=== PATIENT | male | born 1990 | race Two or more races ===

== ENCOUNTER 2025-02-09 14:23 | Emergency (ER) | payer MEDICAID, SELFPAY ==
[2025-02-09 14:37] VITALS: BP 121/84; PULSE 84; RESP 18; TEMP 36.9; O2SAT 97
[2025-02-09 14:38] VITALS: BMI 33.4
--- NOTE | 2025-02-09 15:04 | EDNOTE_ITS ---
ED Headache RME/HPI General Chief Complaint: Headache Stated Complaint: Headache X 5 days Time Seen by Provider: 02/09/25 14:42 Arrival date/time: 02/09/25 14:23 Limitations: language barrier RME / HPI RME / HPI Narrative: 34-year-old male brought in by for evaluation of headache x 5 days. He describes it as intermittent tightness from the back of his scalp to his bilateral temporal region. He endorses increased fatigue, itching eyes, red eyes for the last x 1 week. Patient denies weakness, dizziness, numbness, tingling, visual changes, rhinorrhea, facial pain, chest pain, shortness of breath, nausea, vomiting. Patient denies recent head trauma. Denies history of similar headaches. Related Data Previous Rx's ?Medication ?Instructions ?Recorded cyclobenzaprine 10 mg tablet 10 mg PO TID PRN muscle s pasm #30 02/09/25 tabs ibuprofen 800 mg tablet 800 mg PO Q8H PRN pain #10 t abs 02/09/25 ondansetron HCl 4 mg tablet 4 mg PO Q8H PRN nausea and 02/09/25 vomiting #14 tabs Allergies Allergy/AdvReac Type Severity Reaction Status Date / Time No Known Drug Allergies Allergy Verified 02/09/25 14:28 Review of Systems Constitutional Constitutional: Denies chills, Reports daytime sleepiness, Denies excessive sweating, Reports fatigue, Denies fever(s), Reports headache(s), Reports lethargy and Denies weakness Eyes Eyes: Denies blurry vision, Denies change in vision, Denies diplopia, Reports dry eyes, Reports irritation, Reports itchy eyes, Denies eye pain, Reports photophobia, Denies spots in vision and Denies tunnel vision ENT Ears, Nose, Mouth, and Throat: Denies disequilibrium, Denies dizziness, Denies otalgia, Denies facial pain, Reports headache(s), Denies nasal congestion and Denies neck pain Cardiovascular Cardiovascular: Denies chest pain, Denies dyspnea and Denies leg edema Respiratory Respiratory: Denies cough, Denies dyspnea and Denies wheezing Gastrointestinal Gastrointestinal: Denies nausea and Denies vomiting Genitourinary Genitourinary: Denies dysuria and Denies flank pain Musculoskeletal Musculoskeletal: Denies back pain, Denies neck pain, Denies numbness, Denies radiating pain into limb, Denies stiffness and Denies tingling Integumentary/Breasts Skin/Breast: Denies non-healing lesions and Denies rash Neurologic Neurologic: Denies confusion, Denies convulsions, Denies disequilibrium, Denies dizziness, Reports headache(s), Denies lack of coordination, Denies numbness, Denies sensory deficit, Denies tingling and Denies weakness Psychiatric Psychiatric: Reports anxiety and Denies confusion Endocrine Endocrine: Denies excessive sweating and Reports fatigue Allergic/Immunologic Allergic/Immunologic: Reports itchy eyes and Denies wheezing Past Medical History Social History SMOKING STATUS: Never smoker ED Exam General Limitations: Present language barrier General appearance: Present alert and in no apparent distress Head Head exam: Present atraumatic and normocephalic Expanded Head Exam Head exam physical: Absent tenderness of temporal artery Eye Eye exam: Present normal appearance, PERRL, EOMI and conjunctival injection (bilateral. ); Absent nystagmus or periorbital tenderness ENT ENT exam: Present normal oropharynx and mucous membranes moist Neck Neck exam: Present normal inspection and full ROM; Absent meningismus Chest Chest inspection: Present normal inspection and symmetric chest wall rise; Absent tenderness Respiratory Respiratory exam: Present normal lung sounds bilaterally; Absent respiratory distress or wheezes Cardiovascular Cardiovascular exam: Present regular rate and +S1 Abdominal Exam Abdominal exam: Present soft; Absent distention Extremities Exam Extremities exam: Present normal inspection, full ROM and tenderness Back Exam Back exam: Present normal inspection and full ROM Neurological Exam Neurological exam: Present alert, oriented X3 and normal gait; Absent motor sensory deficit Expanded Neurological Exam Patient oriented to: Present person, place and time Speech: Present fluid speech Cranial nerves: Normal: facial sensation (V), facial palsy (VII) and spinal accessory function (XI) Cerebellar function: Present normal gait Motor strength - LUE: 5/5 Motor strength - RUE: 5/5 Motor strength - LLE: 5/5 Motor strength - RLE: 5/5 Psychiatric Psychiatric exam: Present normal affect and normal mood Skin Skin exam: Present warm, dry and normal color Course Quality Measures none Orders Category Date Time Status Acetaminophen Tab [Tylenol Tab] Med 02/09/25 14:59 Discontinued 650 mg PO X1 ONE DiphenhydrAMINE INJ [Benadryl Inj] Med 02/09/25 14:59 Discontinued 25 mg IM X1 ONE Ketorolac Inj [Toradol Inj] Med 02/09/25 14:59 Discontinued 30 mg IM X1 ONE Metoclopramide [Reglan] Med 02/09/25 15:02 Discontinued 10 mg PO X1 ONE lorataDINE [Claritin] Med 02/09/25 15:01 Discontinued 10 mg PO X1 ONE Vital Signs Vital signs: Vital Signs Temperature 98.4 F 02/09/25 14:37 Pulse Rate 84 02/09/25 14:37 Respiratory Rate 18 02/09/25 14:37 Blood Pressure 121/84 02/09/25 14:37 Pulse Oximetry (%) 97 02/09/25 14:37 Oxygen Delivery Method Room Air 02/09/25 14:37 Pulse ox 97% on room air, within normal limits. Headache MDM Narrative MDM Narrative:: 34-year-old male presented with headache. Vital signs reassuring. Patient well-appearing with no focal neurodeficits on examination therefore less concern for CVA at this time and CT head was deferred. No meningeal signs on exam and patient afebrile therefore less concern for systemic concerns such as meningitis or sepsis. Symptomatic treatment of his headache symptoms with headache cocktail improved his symptoms. More likely tension headache with possible seasonal allergy component. Ultimately the patient was discharged with short course of antispasmodics and loratadine for the next month. I advised the patient to follow-up with primary care within the next 2 to 3 days for reevaluation. Return precautions were provided. Patient stable at time discharge Patient data External records reviewed:: [facility] previous records Clinical information provided by:: patient and family Social determinants that could affect healthcare access:: none Patient has the following chronic illnesses:: None reported. How is presenting disease/condition affected by chronic disease/condition?: no chronic disease Evaluation data The following diagnostics were reviewed and interpreted by me:: other (specify) Lab and/or radiology exams considered but not ordered:: Considered not ordered. Interpretation Summary: Considered not ordered. Medications / Prescriptions Medications or Prescriptions considered but not ordered:: Rx given. Medication administrations:: Medication Administration History Discontinued Medications Acetaminophen (Acetaminophen 325 Mg Tablet) 650 mg PO X1 ONE Stop: 02/09/25 15:00 Last Admin: 02/09/25 15:32 Dose: 650 mg Documented By: Diphenhydramine HCl (Diphenhydramine Inj 50 Mg/Ml Vial) 25 mg IM X1 ONE Stop: 02/09/25 15:00 Last Admin: 02/09/25 15:37 Dose: 25 mg Documented By: Ketorolac Tromethamine (Ketorolac Inj 60 Mg/2 Ml Vial) 30 mg IM X1 ONE Stop: 02/09/25 15:00 Last Admin: 02/09/25 15:37 Dose: 30 mg Documented By: Loratadine (Loratadine 10 Mg Tablet) 10 mg PO X1 ONE Stop: 02/09/25 15:02 Last Admin: 02/09/25 15:33 Dose: 10 mg Documented By: Metoclopramide HCl (Metoclopramide 5 Mg Tablet) 10 mg PO X1 ONE Stop: 02/09/25 15:03 Last Admin: 02/09/25 15:34 Dose: 10 mg Documented By: Rx given. Consultations Consultation(s) initiated? (list below): No Diagnosis Differential diagnosis headache: migraine, tension headache, subarachnoid hemorrhage, headache, meningitis and sinusitis Most likely diagnosis given after review of the tests above:: Headache. Admission Indicated Admission indicated?: not indicated Admission Request Was there a request for admission?: No Disposition Plan Disposition Plan: Discharge Discharge Attestation Discharge Attestation: The patient and all family members were given an opportunity to ask questions and understood the discharge instructions. Discharge instructions specifically effects, indications for sooner follow up or return to the emergency department, and the expected course of current diagnosis. Patient condition: Stable Discharge Plan Plan Patient Disposition: HOME (Self Care) Discharge Disposition comment: stable Prescriptions/Referrals Prescriptions/Med Rec: New cyclobenzaprine 10 mg tablet 10 mg PO TID PRN (Reason: muscle spasm) Qty: 30 0RF ibuprofen 800 mg tablet 800 mg PO Q8H PRN (Reason: pain) Qty: 10 0RF ondansetron HCl 4 mg tablet 4 mg PO Q8H PRN (Reason: nausea and vomiting) Qty: 14 0RF Referrals: No Primary/Family,Physician [Primary Care Provider] - In 1 week Problem List Clinical Impression: Tension headache Patient/Caregiver Discharge Instructions Education Materials: Tension Headaches Additional Instructions: Take Flexeril every 8 hours as needed for tension headache. Take ibuprofen as needed for headache every 6 hours. Take Zyrtec, Claritin, or Karyn daily for the next times month for seasonal allergy symptoms. Follow-up with primary care within the next week for reevaluation. Return to the ED if your symptoms worsen or change. Print Language: Hebrew Stand Alone Forms: Yeni Award Info., Patient Portal Info Letter PA/HEAD MILLER Supervising Physician PA/HEAD MILLER Supervising Physician: Dr. Duvall
[2025-02-09] MEDS: ACETAMINOPHEN 325 MG TABLET 650 MG PO (15:32)
[2025-02-09] MEDS: lorataDINE 10 MG TABLET PO (15:33)
[2025-02-09] MEDS: METOCLOPRAMIDE 5 MG TABLET 10 MG PO (15:34)
[2025-02-09] MEDS: DiphenhydrAMINE INJ 50 MG/ML VIAL 25 MG IM (15:37)
[2025-02-09] MEDS: KETOROLAC INJ 60 MG/2 ML VIAL 30 MG IM (15:37)
== END 2025-02-09 17:05 | disposition home or self-care (01) ==
PROVIDERS: Emergency Provider Emergency Medicine
DX: G44.209 Tension-type headache, unspecified, not intractable (principal)
CPT/HCPCS: 96372; 99283; J1200; J1885; A9270